=== PATIENT | female | born 1930 | race Caucasian/White ===

== ENCOUNTER 2017-12-27 10:03 | Outpatient (RCR) | payer MEDICARE, SELFPAY, BC | END 2017-12-30 | LOC: M PT 10:03 | DX: Z51.89 Encounter for other specified aftercare (principal); I89.0 Lymphedema, not elsewhere classified | CPT/HCPCS: 97140 ==

== ENCOUNTER 2018-01-02 09:13 | Outpatient (RCR) | payer MEDICARE, BC | END 2018-01-30 | LOC: M PT 01-04 10:29 | DX: Z51.89 Encounter for other specified aftercare (principal); I89.0 Lymphedema, not elsewhere classified | CPT/HCPCS: 97140 ==

== ENCOUNTER 2018-08-09 08:57 | Outpatient (RCR) | payer MEDICARE, BC | END 2018-08-30 | LOC: M PT 08:57 | PROVIDERS: ATTEND Surgery | DX: I89.0 Lymphedema, not elsewhere classified (principal) ==

== ENCOUNTER 2019-03-08 09:16 | Outpatient (RCR) | payer MEDICARE, BC | END 2019-04-01 | LOC: M PT 09:16 | PROVIDERS: ATTEND Surgery | DX: I89.0 Lymphedema, not elsewhere classified (principal) ==